=== PATIENT | male | born 2000 | race Caucasian/White ===

== ENCOUNTER 2021-10-17 01:37 | Emergency (ER) | payer OTHER ==
[~2021-10-17] VITALS: Ht 177.8 cm; Wt 76.6 kg
[2021-10-17 01:53] VITALS: BP 128/83
[2021-10-17] MEDS ORDERED: BACITRACIN ZINC OINT UDPKT TOP ONE (02:15)
[2021-10-17] MEDS ORDERED: LIDOCAINE HCL/PF 1% 10 MG/ML 5ML VIAL INFIL ONE (02:15)
[2021-10-17] MEDS ORDERED: HYDR-4001 MT (05:27)
[2021-10-17] MEDS ORDERED: CEPH500C2 MT (05:27)
[2021-10-17] MEDS ORDERED: CEPHALEXIN 250MG CAPSULE PO ONE (05:30)
[2021-10-17] MEDS ORDERED: HYDROCODONE/ACETAMINOPHEN 5/325MG TABLET PO ONE (05:30)
== END 2021-10-17 06:00 | disposition home or self-care (01) ==
LOC: ER 02:01
DX: H60.02 Abscess of left external ear (principal); Z91.048 Other nonmedicinal substance allergy status
CPT/HCPCS: 10060; 99283; J3490; Z7610